=== PATIENT | male | born 1970 | race Caucasian/White ===

== ENCOUNTER 2021-02-17 19:03 | Emergency (ER) | payer OTHER ==
[~2021-02-17 19:03] MED LIST: KEFLEX500 MG PO; PERCOCET 5-3251 EACH PO
[2021-02-17] MEDS ORDERED: KEFLEX250 MG PO (22:04)
== END 2021-02-17 22:10 | disposition home or self-care (01) ==
LOC: FER 19:03
DX: S61.213A Laceration without foreign body of left middle finger without damage to nail, initial encounter (principal); W31.9XXA Contact with unspecified machinery, initial encounter; Y92.009 Unspecified place in unspecified non-institutional (private) residence as the place of occurrence of the external cause
CPT/HCPCS: 73140